=== PATIENT | female | born 1940 | race Native Hawaiian/Other Pacific Islander ===

== ENCOUNTER 2017-09-20 01:12 | Emergency (ER) | payer OTHER ==
[~2017-09-20] VITALS: Ht 152.4 cm; Wt 81.6 kg
[~2017-09-20 01:12] MED LIST: ASPI-COR81 M1 PO; ASPI-COR81 M2 PO; COUMADIN4 MG PO; GABAPENTIN300 M1 PO; GLIPIZIDE10 M PO; GLU10XL PO; HCTZ PO; KLORCON PO; L20 PO; LYRICA75 M1 PO; LYRICA75 MG PO; METFORMIN HCL1000 MG PO; METFORMIN1000 MG PO; NEU300 PO; SOTALOL HCL80 MG PO; VICODIN1 TA1 PO; VICODIN1 TAB PO; ZES10 PO; ZOLPIDEM TART PO; ZOLPIDEM TART5 MG PO
[2017-09-20 01:18] VITALS: Ht 152.4 cm; Wt 81.6 kg
[2017-09-20 02:34] LABS: BASOPHIL % 1.6 % (0-2)
[2017-09-20 02:36] LABS: PLATELET COUNT 480 x10^3mcL (130-400); RED CELL DISTRIBUTION WIDTH 17.1 % (11.5-14.5)
[2017-09-20 02:43] LABS: CALCIUM 8.7 mg/dL (8.5-10.1); CARBON DIOXIDE 27.8 mmol/L (21-32); CHLORIDE SERUM 106 mmol/L (98-107); CREATININE SERUM 1.2 mg/dL (0.6-1.0); GLUCOSE SERUM 140 mg/dL (74-106); POTASSIUM SERUM 4.5 mmol/L (3.5-5.1); SODIUM SERUM 143 mmol/L (136-145)
[2017-09-20 02:48] LABS: ALKALINE PHOSPHATASE 166 U/L (46-116); ALT/SGPT 17 U/L (14-59); AST/SGOT 17 U/L (15-37); TOTAL PROTEIN, SERUM 8.1 g/dL (6.4-8.2)
[2017-09-20 03:03] LABS: UA SPECIFIC GRAVITY <=1.005 (1.005-1.035); microscopic required? YES; urine erythrocyte NEGATIVE (NEGATIVE)
[2017-09-20 04:01] VITALS: BP 151/82
== END 2017-09-20 04:01 | disposition home or self-care (01) ==
LOC: ED 01:12
PROVIDERS: Emergency Medicine
DX: N39.0 Urinary tract infection, site not specified (principal); R07.89 Other chest pain; R06.02 Shortness of breath; I10 Essential (primary) hypertension; E11.9 Type 2 diabetes mellitus without complications
CPT/HCPCS: 36415; 82962

== ENCOUNTER 2017-10-27 17:43 | Emergency (ER) | payer OTHER ==
[~2017-10-27] VITALS: Ht 152.4 cm; Wt 83.9 kg
[2017-10-27 17:55] VITALS: Ht 152.4 cm; Wt 83.9 kg
[2017-10-27 18:43] LABS: UA SPECIFIC GRAVITY >=1.030 (1.005-1.035); microscopic required? YES; urine erythrocyte 1+ (NEGATIVE)
[2017-10-27 18:55] LABS: PLATELET COUNT 378 x10^3mcL (130-400)
[2017-10-27 18:56] LABS: BASOPHIL % 2.1 % (0-2); RED CELL DISTRIBUTION WIDTH 18.8 % (11.5-14.5)
[2017-10-27 19:04] LABS: CALCIUM 8.7 mg/dL (8.5-10.1); CARBON DIOXIDE 25.7 mmol/L (21-32); CHLORIDE SERUM 109 mmol/L (98-107); GLUCOSE SERUM 117 mg/dL (74-106); POTASSIUM SERUM 3.6 mmol/L (3.5-5.1); SODIUM SERUM 145 mmol/L (136-145)
[2017-10-27 19:11] LABS: ALBUMIN 3.9 g/dL (3.4-5.0); ALKALINE PHOSPHATASE 129 U/L (46-116); ALT/SGPT 17 U/L (14-59); AST/SGOT 20 U/L (15-37); BILIRUBIN TOTAL 0.49 mg/dL (0.20-1.00)
[2017-10-27 23:33] VITALS: BP 176/64
== END 2017-10-27 23:33 | disposition home or self-care (01) ==
LOC: ED 17:43
PROVIDERS: Emergency Medicine
DX: D50.9 Iron deficiency anemia, unspecified (principal); R33.9 Retention of urine, unspecified; I10 Essential (primary) hypertension; E11.9 Type 2 diabetes mellitus without complications
CPT/HCPCS: 83880; 85378; J1200; J2405; J3010; J3490; J7030; Q9967

== ENCOUNTER 2018-08-15 06:46 | Inpatient (IN) | payer OTHER ==
[~2018-08-15] VITALS: Ht 152.4 cm; Wt 77.1 kg
[2018-08-15 06:50] VITALS: Ht 152.4 cm; Wt 77.1 kg
--- NOTE | 2018-08-15 07:09 | NUR ---
PT PRESENTED TO ED FOR BILATERAL CHEST PAIN X 3 DAYS THAT WORSENED TODAY AND DIARRHEA X 2 DAYS. PT STATES CHEST PAIN IS NONPROVOKED AND NONRADIATING. PT STATES RECENT INCREASE IN URINARY FREQUENCY. PT IS NAD. BREATHING EVEN AND UNLABORED. PT A&OX4, SPEAKING FULL CLEAR SENTENCES. CM AND [address] MSE IN PROGRESS BY DR PUENTE. FAMILY AT BEDSIDE. WILL CONTINUE TO MONITOR.
--- NOTE | 2018-08-15 07:14 | NUR ---
REPORT GIVEN TO EUGENE TOMPKINS. EUGENE TOMPKINS TO FURTHER CARE OF PATIENT.
--- NOTE | 2018-08-15 07:15 | NUR ---
PT RECIEVED FROM ER. ADMISSION HISTORY AND ASSESSMENT WAS COLLECTED AND WILL BE DOCUMENTED. FAMILY AT BEDSIDE. SAFETY PRECAUTIONS IN PLACE AT THIS TIME. PT DENIES PAIN AT THIS TIME. NO RESPIRATORY DISTRESS NOTED. TELE MONITOR #30 CONNECTED TO PT. CALL LIGHT WITHIN REACH. WILL MONITOR.
--- NOTE | 2018-08-15 07:15 | NUR ---
RECEIVED REPORT FROM LEDA BENITEZ TO ASSUME CARE FOR THIS PT.
--- NOTE | 2018-08-15 07:32 | NUR ---
AT 0728 WHEN THE FIRST NITROSTAT WAS ADMINISTERED THE PTS RIGHT SIDED CHEST PAIN WAS REPORTED 8/10 ON THE VERBAL NUMERIC PAIN SCALE.
--- NOTE | 2018-08-15 07:52 | NUR ---
PT STRAIGHT CATHED WITH LEDA GUTIÉRREZ TO ASSIST. PT TOLERATED WELL. URINE COLLECTED AND SENT TO THE LAB.
[2018-08-15 08:21] LABS: CHLORIDE SERUM 105 mmol/L (98-107); CREATININE SERUM 0.9 mg/dL (0.6-1.0); POTASSIUM SERUM 3.3 mmol/L (3.5-5.1); SODIUM SERUM 142 mmol/L (136-145)
[2018-08-15 08:22] LABS: UA SPECIFIC GRAVITY 1.025 (1.005-1.035); microscopic required? YES
[2018-08-15 08:23] LABS: urine erythrocyte TRACE (NEGATIVE)
[2018-08-15 08:29] LABS: ALBUMIN 4.1 g/dL (3.4-5.0); ALKALINE PHOSPHATASE 72 U/L (46-116); ALT/SGPT 17 U/L (14-59); AMYLASE 88 U/L (25-115); AST/SGOT 14 U/L (15-37); BILIRUBIN TOTAL 0.5 mg/dL (0.20-1.00); CALCIUM 8.7 mg/dL (8.5-10.1); CARBON DIOXIDE 21.3 mmol/L (21-32); GLUCOSE SERUM 104 mg/dL (74-106); HDL CHOLESTEROL 40 mg/dL (40-60); LIPASE 224 IU/L (73-393); T4(THYROXINE) 10.3 ug/dL (4.7-13.3)
[2018-08-15 08:33] LABS: CHOLESTEROL 116 mg/dL (<200)
[2018-08-15 09:05] LABS: BASOPHIL % 0.8 % (0-2); PLATELET COUNT 410 x10^3mcL (130-400); RED CELL DISTRIBUTION WIDTH 20.1 % (11.5-14.5)
--- NOTE | 2018-08-15 10:18 | NUR ---
PT REMAINS RESTING IN A POSITION OF COMFORT IN LOW POSITIONED BED WITH SIDE RAILS UP X 2 AND CALL LIGHT WITH REACH.
--- NOTE | 2018-08-15 11:42 | NUR ---
PT C/O PAIN LOACTED IN BILATERAL LOWER EXTREMITIES. PT REPORTS "IT'S CONSTANT RADIATING UP AND DOWN, AND SHARP." PT RATES PAIN AT 9/10. DR. PUENTE MADE AWARE. SEE EMAR FOR NEW ORDERS.
--- NOTE | 2018-08-15 12:02 | NUR ---
PT RESTING IN SEMI-FOWLERS POSITION. RESPS E/U, SKIN IS PINK, WARM AND DRY. CALL LIGHT WITHIN REACH.
[2018-08-15] MEDS ORDERED: METFORMIN HCL1000 MG PO (12:42)
[2018-08-15] MEDS ORDERED: SOTALOL HCL80 MG PO (12:42)
[2018-08-15] MEDS ORDERED: GLUCOTROL10 MG PO (12:42)
[2018-08-15] MEDS ORDERED: LYRICA200 MG (12:42)
[2018-08-15] MEDS ORDERED: LORAZEPAM0.5 MG (12:43)
[2018-08-15] MEDS ORDERED: POTASSIUM CHLO10 MEQ (12:43)
[2018-08-15] MEDS ORDERED: NORCO1 TA2 (12:44)
[2018-08-15] MEDS ORDERED: ASPIRIN FOR CHI81 M1 PO (12:45)
--- NOTE | 2018-08-15 12:51 | NUR ---
REPORT GIVEN TO MONSERRAT/FERCHO RN'S FROM TELE FLOOR TO ASSUME CARE.
[2018-08-15 13:20] VITALS: BP 152/68
[2018-08-15 13:45] LABS: AMPHETAMINE QUAL UR NONE DETECTED (See below)
[2018-08-15 16:13] VITALS: BP 179/79
--- NOTE | 2018-08-15 16:15 | NUR ---
PT C/O 01/28 BLE NEUROPATHY PAIN. PAGED DR MULLINS FOR PAIN MEDICATION ORDER. NO PAIN MEDICATION ORDER AVAILABLE AT THIS TIME.
--- NOTE | 2018-08-15 17:00 | NUR ---
INFORMED ABOUT PT HAS DIFFICULTY VOIDING. HE SAID STRAIGHT CATH PT IF SHE HAS PROBLEM VOIDING.
--- NOTE | 2018-08-15 17:06 | NUR ---
RECEIVED CALL BACK FROM DR. MULLINS MADE AWARE OF C/O FOR PAIN, NAUSEA AND ELEVATED B/P 179/79. OBTAINED T.O FOR MEDICATIONS. ORDERS CARRIED OUT. ATTENDING NURSE MADE AWARE.
--- NOTE | 2018-08-15 17:10 | NUR ---
INFORMED PT ABOUT STRAIGHT CATH. PT SAID SHE IS VOIDING IN THE PAD NOW. PT REQUESTED PRIVACY AND PROVIDED.
--- NOTE | 2018-08-15 17:48 | NUR ---
RECIEVED ORDER FROM DR MULLINS FOR PAIN AND NAUSEA MEDICATION, NORCO PO FOR PAIN AND ZOFRAN IV FOR MILD NAUSEA (SEE eMAR). PT STATES PAIN IS NOW AT A 5/10 AFTER NON PHARMALOGICAL INTERVENTIONS DONE. PT STILL REQUESTING NORCO FOR 5/10 BLE PAIN. NORCO GIVEN FOR PAIN AND ZOFRAN GIVEN FOR C/O MILD NAUSEA. WILL REASSESS PT.
--- NOTE | 2018-08-15 18:15 | NUR ---
PT VOIDED IN THE ABSORB PAD, LARGE AMOUNT URINE ACCORDING TO MELT ROOM OPERATOR.
--- NOTE | 2018-08-15 19:10 | NUR ---
PT RESTING COMFORTABLY IN BED WITH NO C/O PAIN OR RESPIRATORY DISTRESS. TOLERATED ALL CARES WELL. V/S WNL. SAFETY PRECAUTIONS IN PLACE. CALLL LIGHT WITHIN REACH. REPORT GIVEN TO COMMERCIAL LINES ACCOUNT EXECUTIVE.
--- NOTE | 2018-08-15 19:30 | NUR ---
PT RESTING IN BED COMFORTABLY WITH NO ACUTE DISTRESS NOTED AT THIS TIME, PT HAS NO COMPLAINTS OF CHEST PAIN OR DIFFICULTY BREATHING AT THIS TIME, PT IS A/OX 4, PERIPHERAL PULSES PALPABL, NO EDEMA PRESENT, LUNG SOUNDS CTA THROUGHOUT, BOWEL SOUNDS ACTIVEX 4, PT HAS EPISODES OF URINARY INCONTINENCE, PT C/O GENERALIZED WEAKNESS, AND USE OF WHEELCHAIR AT HOME, PT SKIN DRY INTACT, SAFETY PRECAUTIONS IN PLACE, WILL CONTINUE TO MONITOR
--- NOTE | 2018-08-15 21:30 | NUR ---
PT RESTING COMFORTABLY IN BED WATCHING TV, REPORTS NO CHEST PAIN OR SOB AT THIS TIME, ALL NEEDS MET AT THIS TIME, SAFETY PRECAUTIONS IN PLACE WILL CONTINUE TO MONITOR
[2018-08-15 21:44] VITALS: BP 149/59
--- NOTE | 2018-08-15 23:59 | NUR ---
PT C/O BLE SHOOTING PAIN 11/28. MEDICATED WITH NORCO.
--- NOTE | 2018-08-16 00:30 | NUR ---
PT SLEEPING COMFORTABLY IN BED WITH NO ACUTE SIGNS OF DISTRESS, RESPIRATIONS EVEN AND UNLABORED, SAFETY PRECAUTIONS IN PLACE WILL CONTINUE TO MONITOR.
--- NOTE | 2018-08-16 02:50 | NUR ---
PT ASSISTED ONTO THE BEDPAN AND HAD A VOID FREE OF BURNING ITCHING OR PAIN, PT DENIES CHEST PAIN AT THIS TIME, PT DENIES RESPIRATORY DISTRESS AT THIS TIME, SAFETY PRECAUTIONS IN PLACE WILL CONTINUE TO MONITOR
--- NOTE | 2018-08-16 05:29 | NUR ---
PT RESTED COMFORTABLY THROUGH THE NIGHT WITH ONE EPISODE OF LEG PAIN THAT WAS TREATED (SEE NOTES), PT DENIED HAVING CHEST PAIN THROUGH THE NIGHT, HAD NO EPISDOES OF SOB THROUGH THE NIGHT, THE PATIENT WAS ABLE TO VOID FREELY WITH NO COMPLAINT OF BURNING OR PAIN, SAFETY PRECAUTIONS WERE MAINTAINED THROUGH THE NIGHT, WILL ENDORSE TO ONCOMING RN.
[2018-08-16 05:57] VITALS: BP 141/57
[2018-08-16 07:13] LABS: ALBUMIN 3.7 g/dL (3.4-5.0); ALKALINE PHOSPHATASE 68 U/L (46-116); ALT/SGPT 16 U/L (14-59); AST/SGOT 13 U/L (15-37); BILIRUBIN TOTAL 0.5 mg/dL (0.20-1.00); CALCIUM 8.5 mg/dL (8.5-10.1); CARBON DIOXIDE 21.5 mmol/L (21-32); CHLORIDE SERUM 106 mmol/L (98-107); CREATININE SERUM 0.9 mg/dL (0.6-1.0); GLUCOSE SERUM 153 mg/dL (74-106); HDL CHOLESTEROL 38 mg/dL (40-60); POTASSIUM SERUM 4.2 mmol/L (3.5-5.1); SODIUM SERUM 141 mmol/L (136-145); TOTAL PROTEIN, SERUM 7.4 g/dL (6.4-8.2); TRIGLYCERIDES 72 mg/dL (<150)
[2018-08-16 07:16] LABS: CHOLESTEROL 112 mg/dL (<200); CHOLESTEROL/HDL RATIO 2.9
--- NOTE | 2018-08-16 07:20 | NUR ---
RECEIVED PT FROM UPFITTER, PT RESTING IN BED. DENIES ANY PAIN. ASSESSED AND WILL DOCUMENT. STABLE. SAFTEY PRECAUTIONS ARE IN PLACE. WILL MONITOR.
[2018-08-16 10:14] VITALS: BP 148/40
--- NOTE | 2018-08-16 11:03 | NUR ---
PT C/O BLE PAIN,10/28 AT 1003 . SHE SAID IT'S HER NEUROPATHY PAIN. NORCO PO GIVEN PER ORDER AT 1003. REASSESSED NOW AND PT SAID SHE DOESNOT HAVE ANY PAIN AT 1103. WILL CONTINUE MONITOR.
--- NOTE | 2018-08-16 11:04 | NUR ---
PT IS STABLE. FAMILY AT BEDSIDE.
[2018-08-16 12:36] VITALS: BP 139/66
--- NOTE | 2018-08-16 13:00 | NUR ---
PT VOIDED 3 TIMES BUT EVERY TIME ONLY 50ML URINE OUT PUT. WILL CONTINUE MONITOR. PT DENIES ANY PAIN. STABLE.
--- NOTE | 2018-08-16 15:00 | NUR ---
PT VOIDED 4 TIMES, 50ML URINE OUT PUT EVERY TIME, TOTAL 200ML. PT C/O MILD TENDERNESS WITH PALPATION BUT ABD NOT DISTENTED. WILL INFORM AND WILL CONTINUE MONITOR.
--- NOTE | 2018-08-16 16:00 | NUR ---
CAME AND SPOKE WITH PT. INFORMED HIM ABOUT PT IS NOT VOIDING ENOUGH, 200ML FROM 0700 AM TO 1500, 50ML EVERY TIME WHEN PT VOID AND PT C/O MILD LOWER ABDOMINAL TENDERNESS WITH PALPATION. ABD NOT DISTENTED. HE RECCOMENDED BLADDER SCAN. BLADDER SCAN IS DONE, ONLY 47ML FOUND IN THE BLADDER BY SCAN. INFORMED HE SAID PT IS FINE AND STABLE TO GET DISCHARGE HOME. INFORMED PT AND SHE IS CALLING FOR FAMILY TO PICK HER UP. WILL DO DISCHARGE SOON.
--- NOTE | 2018-08-16 16:10 | NUR ---
AWARE ABOUT BP 148/41 AND HR 58 IN AM BUT NOW BP 139/66 AND HR 66. PT IS STABLE. SAID PT IS STABLE TO DISCHARGE.
[2018-08-16 16:18] VITALS: BP 139/66
--- NOTE | 2018-08-16 17:55 | NUR ---
PT C/O BLE NEUROPATHIC PAIN,07/29. MEDICATED PT WITH NORCO PO ORDERED. WILL REASSESS.
--- NOTE | 2018-08-16 18:50 | NUR ---
PT'S DAUGHTER CAME TO SHORE MAN PT. DISCHARGE INSTRUCTIONS GIVEN. PB SIGNED AND SENT WITH PT. IV REMOVED AND DRESSING APPLIED. TELE REMOVED AND RETURNED. PT DENIES ANY PAIN THIS TIME. SURGICAL TECHNOLOGY INSTRUCTOR WHEELED PT TO LOBBY ACCOMPANIED WITH FAMILY. PT DC HOME.
== END 2018-08-16 18:55 | disposition home or self-care (01) | DRG 313 ==
LOC: ED 06:46 → DU 12:30
PROVIDERS: Emergency Medicine; ADMIT Internal Medicine
DX: R07.89 Other chest pain (principal); E11.42 Type 2 diabetes mellitus with diabetic polyneuropathy; I49.1 Atrial premature depolarization; I10 Essential (primary) hypertension; Z68.26 Body mass index [BMI] 26.0-26.9, adult; Z96.642 Presence of left artificial hip joint; Z87.891 Personal history of nicotine dependence; Z79.84 Long term (current) use of oral hypoglycemic drugs
CPT/HCPCS: 82962; 83880; 85378; J1885; J2405; Q0092

== ENCOUNTER 2018-10-16 07:21 | Inpatient (IN) | payer OTHER ==
[~2018-10-16] VITALS: Ht 152.4 cm; Wt 77.8 kg
[~2018-10-16 07:21] MED LIST changes: +ASPIRIN FOR CHI81 M1 PO; +GLUCOTROL10 MG PO; +LORAZEPAM0.5 MG; +LYRICA200 MG; +NORCO1 TA2; +POTASSIUM CHLO10 MEQ
--- NOTE | 2018-10-16 07:45 | NUR ---
PT PRESENTS TO ED WITH C/O SOB SINCE 0300 THIS AM. PT AAOX4 NO RESP DISTRESS NOTED. PT GOWNED PLACED ON FULL CM AFIB. LUNGS CTA FAMILY AT BEDSIDE WILL MONITOR.
--- NOTE | 2018-10-16 07:53 | NUR ---
LAB AT BEDSIDE FOR BLOOD DRAW
--- NOTE | 2018-10-16 08:04 | NUR ---
PORTABLE CXR AT BEDSIDE
[2018-10-16 08:14] LABS: BASOPHIL % 1.1 % (0-2)
[2018-10-16 08:16] LABS: PLATELET COUNT 525 x10^3mcL (130-400); RED CELL DISTRIBUTION WIDTH 20.1 % (11.5-14.5); rbc morphology (normal/abnorm) ABNORMAL (NORMAL)
[2018-10-16 08:27] LABS: CALCIUM 9.5 mg/dL (8.5-10.1); CARBON DIOXIDE 17.6 mmol/L (21-32); CHLORIDE SERUM 107 mmol/L (98-107); GLUCOSE SERUM 231 mg/dL (74-106); POTASSIUM SERUM 4.5 mmol/L (3.5-5.1); SODIUM SERUM 140 mmol/L (136-145)
[2018-10-16 08:32] LABS: ALKALINE PHOSPHATASE 72 U/L (46-116); ALT/SGPT 20 U/L (14-59); AST/SGOT 13 U/L (15-37); BILIRUBIN TOTAL 0.65 mg/dL (0.20-1.00); TOTAL PROTEIN, SERUM 7.9 g/dL (6.4-8.2)
--- NOTE | 2018-10-16 08:50 | NUR ---
PT TO BEDSIDE COMMODE WILL PROVIDE URINE SAMPLE
--- NOTE | 2018-10-16 08:55 | NUR ---
URINE COLLECTED, DIPPED AND SENT TO LAB
--- NOTE | 2018-10-16 09:00 | NUR ---
PT WITH URGE TO HAVE BM ASSISTED TO BEDSIDE COMMODE
--- NOTE | 2018-10-16 09:16 | NUR ---
AFTER 15 MINUTES SITTING ON BEDSIDE COMMODE PT WAS UNABLE TO HAVE BM. ASSISTED BACK TO BED WITH NO INCIDENT PLACED ON FULL CM WILL MONITOR
--- NOTE | 2018-10-16 09:57 | NUR ---
PT WITH URGE TO VOID ASSISTED TO BEDSIDE COMMODE.
--- NOTE | 2018-10-16 10:12 | NUR ---
REPORT GIVEN TO CURLY TOMPKINS RESUMING CARE OF PT IN TELE FLOOR
--- NOTE | 2018-10-16 10:28 | NUR ---
PT TO TELE FLOOR [place]IA [place] ON PORTABLE CM IN NO DISTRESS FAMILY ACCOMPANIED PT. IGNACIO TOMPKINS AND [facility] EMT TRANSPORTED. CURLY TOMPKINS RESUMING CARE OF PT.
--- NOTE | 2018-10-16 10:36 | NUR ---
RECEIVED PT FROM ER, TRANSPORTED VIA [facility]. PT AOX4, RESP E/U ON RA. PT C/O SOB AND CHEST PAIN DURING DEEP BREATHING, RATED 7/10. PLACED IN BED W/ HOB ELEVATED, PUT ON NC AT 2 L/MIN. DURING ASSESSMENT, PT HAD 4 CONSECUTIVE BM EPISODES, SOFT AND FORMED. DENIES ABD PAIN OR N/V. PT AMBULATORY W/ ASSISTANCE, GAIT SLOW AND STEADY, WALKER PROVIDED. CONTINUED ASSESSMENT, VS FOLLOWS: T: 96.6 BP: 143/78, HR: 70, RR: 20, O2: 96. ON TELE 3 SHOWING A-FIB, DENIES CHEST PRESSURE OR PALPITATIONS. SALINE LOCK TO L HAND W/ NO ERYTHEMA OR EDEMA. BED IN LOWEST POSITION AND CALL LIGHT WITHIN REACH. WILL CONTINUE TO MONITOR.
[2018-10-16 10:48] LABS: UA SPECIFIC GRAVITY 1.025 (1.005-1.035); microscopic required? YES; urine erythrocyte NEGATIVE (NEGATIVE)
--- NOTE | 2018-10-16 11:30 | NUR ---
PT SLEEPING IN BED, AROUSABLE, RESP E/U ON RA. NO ACUTE DISTRESS NOTED. BED IN LOWEST POSITION AND CALL LIGHT WITHIN REACH. WILL CONTINUE TO MONITOR.
[2018-10-16 13:25] VITALS: BP 143/78
[2018-10-16 13:55] LABS: CHOLESTEROL/HDL RATIO 2.5
[2018-10-16 17:49] VITALS: BP 157/104
[2018-10-16 18:37] LABS: IRON 19 ug/dL (50-170); TOTAL IRON BINDING CAPACITY 457 ug/dL (250-450)
--- NOTE | 2018-10-16 18:37 | NUR ---
PT IN BED HAVING DINNER, AOX4, RESP E/U NC AT 2L/MIN. C/O BACK PAIN RATED 6/10. MEDICATED ORDERED. BED IN LOWEST POSITION AND CALL LIGHT WITHIN REACH. WILL ENDORSE TO ONCOMING NURSE.
--- NOTE | 2018-10-16 19:45 | NUR ---
RECEIVED PT FROM PREVIOUS SHIFT. PT A/OX4. DENIES PAIN. DENIES SOB ON RA. IV ACCIDENTALLY REMOVED BY PT. CALL LIGHT WITHIN REACH, BED IN LOW POSITION. WALKER AT BEDSIDE. WILL CONTINUE TO MONITOR.
--- NOTE | 2018-10-16 21:01 | NUR ---
NEW IV PLACED TO RFA. PATENT AND FLUSHING WELL. SALINE LOCKED. WILL CONTINUE TO MONITOR.
[2018-10-16 21:14] VITALS: BP 157/62
[2018-10-16 23:22] VITALS: Ht 152.4 cm; Wt 77.8 kg
[2018-10-17 04:37] VITALS: BP 146/81
[2018-10-17 06:27] LABS: BASOPHIL % 1.1 % (0-2)
[2018-10-17 06:30] LABS: CALCIUM 9.5 mg/dL (8.5-10.1); CARBON DIOXIDE 21.2 mmol/L (21-32); CHLORIDE SERUM 107 mmol/L (98-107); GLUCOSE SERUM 113 mg/dL (74-106); POTASSIUM SERUM 4.4 mmol/L (3.5-5.1); SODIUM SERUM 144 mmol/L (136-145)
--- NOTE | 2018-10-17 07:05 | NUR ---
RECIEVED PT FROM STONE RUBBER NURSE. PT USING RESTROOM AT THIS TIME. BROUGHT BACK TO BED FOR ASSESSMENT. PT AOX4, RESP E/U ON RA. PT C/O CHEST PAIN ON INSPIRATION RATED 6/10 AND SOB. ELEVATED HOB AND PLACED ON NC AT 2 L/MIN. WILL CARRY OUT MED ORDERS FOR PAIN. ON TELE 6 SHOWING A-FIB, HR: 94. SALIN LOCK TO R HAND W/ NO ERYTHEMA OR EDEMA. BED IN LOWEST POSITION AND CALL LIGHT WITHIN REACH. WILL CONTINUE TO MONITOR.
[2018-10-17 07:51] LABS: PLATELET COUNT 487 x10^3mcL (130-400); RED CELL DISTRIBUTION WIDTH 20.7 % (11.5-14.5)
[2018-10-17 08:35] VITALS: BP 143/71
--- NOTE | 2018-10-17 09:00 | NUR ---
PT C/O OF CHEST PAIN RATED 6/10, PAIN TRIGGERED W/ DEEP BREATHING. MEDICATED ORDERED. HOB ELEVATED AND NC AT [address] WILL CONTINUE TO MONITOR.
--- NOTE | 2018-10-17 12:25 | NUR ---
PT RESTING IN BED, AOX4, RESP E/U ON NC 2 LPM. NO ACUTE DISTRESS NOTED. DENIES PAIN AT THIS TIME. BED IN LOWEST POSITION AND CALL LIGHT WITHIN REACH. WILL CONTINUE TO MONITOR.
[2018-10-17 12:46] VITALS: BP 138/71
[2018-10-17 16:33] VITALS: BP 144/84
--- NOTE | 2018-10-17 20:50 | NUR ---
RECEIVED PT IN BED AAOX4 NO ACUTE DISTRESS NOTED , LUNG SOUNDS DIMINISHES NO RESP NO DISTRESS NOTED , ABD SOFT BS ACTIVE X4, PT C/O INDIGESTION LAST BM WAS ON THE 28 WILL MEDICATE PT ORDERED . PT'S ON TELE NUMBER 3 THAT SHOWS AFIB HR 88. HL INTACT FLUSHING WELL . CALL LIGHT WITHIN PT'S REACH , WILL CON'T TO MONITOR AND ASSIST PT WITH CARE .
[2018-10-17 22:08] VITALS: BP 146/95
--- NOTE | 2018-10-18 04:52 | NUR ---
PT'S IN BED WITH EYES CLOSED . BED ALARM ON FOR SAFETY PT WAS WONDERING ON THE GLEZ ERLIER VERY DISORIENTED, ORIENTED PT TO THE ROOM . CALL JEFFRIES WITHIN PT'S REACH . HL INTACT .
--- NOTE | 2018-10-18 06:18 | NUR ---
POST NORCO PT DENY PAIN , IN BED WATCHING TV , HL INTACT FLUSHING WELL . CALL LIGHT WITHIN PT'S REACH . WILL CON'T TO MONITOR PT .
[2018-10-18 06:40] VITALS: BP 150/84
[2018-10-18 06:50] LABS: BASOPHIL % 0.8 % (0-2)
--- NOTE | 2018-10-18 07:15 | NUR ---
RECEIVED PT FROM FOREIGN LANGUAGES PROFESSOR NURSE. PT IN BED SLEEPING, AROUSABLE, RESP E/U ON NC AT 2 LPM. NO ACUTE DISTRESS NOTED. ON TELE 3 SHWING A-FIB, HR: 76. SALINE LOCK TO L UPPER ARM W/ NO ERYTHEMA OR EDEMA. BED IN LOWEST POSITION AND CALL LIGHT WITHIN REACH. WILL CONTINUE TO MONITOR.
[2018-10-18 07:47] LABS: PLATELET COUNT 482 x10^3mcL (130-400); RED CELL DISTRIBUTION WIDTH 20.4 % (11.5-14.5)
[2018-10-18 08:55] VITALS: BP 140/59
[2018-10-18 12:15] VITALS: BP 135/69
--- NOTE | 2018-10-18 12:30 | NUR ---
PT RESTING IN BED, AOX4, RESP E/U ON NC AT 2 LPM. C/O MIDLINE CHEST PAIN, RATED 9/10, DENIES PALPITATIONS. MEDCIATED ORDERED. ECCHYMOSIS AND EDEMA NOTED TO RAC AT VENIPUNCTURE SITE. ELEVATED EXTREMITY AND APPLIED ICE PACK. BED IN LOWEST POSITION AND CALL LIGHT WITHIN REACH. WILL CONTINUE TO MONITOR.
[2018-10-18 17:00] VITALS: BP 130/46
--- NOTE | 2018-10-18 18:02 | NUR ---
PT SITTING AT EDGE OF BED HAVING DINNER, AOX4, RESP E/U ON NC AT 2 LPM. DENIES CHEST PAIN AT THIS TIME. NO ACUTE DISTRESS NOTED. IV TO TREVA W/ NO SIGNS OF INFILTRATION, RECEIVING LEVAQUIN AT THIS TIME INFUSING WELL. BED IN LOWEST POSITION AND CALL LIGHT WITHIN REACH. FAMILY AT BEDSIDE ASSISTING W/ DINNER. WILL CONTINUE TO MONITOR.
[2018-10-18 19:50] VITALS: BP 112/52
--- NOTE | 2018-10-18 21:05 | NUR ---
OBTAINED CONSENT FOR EGD AND COLONOSCOPY , PREP FOR COLONOSCOPY STARTED .
--- NOTE | 2018-10-18 22:16 | NUR ---
PT BLOOD SUGAR IS 54, REPEATED IT IS 52. D5O IVP GIVEN PER HOSPITAL PROTOCOL. DR URENA NOTIFIED. ORDERS RECEIVED FOR MAINTENANCE FLUID. PRIMARY NURSE NOTIFIED
--- NOTE | 2018-10-18 22:29 | NUR ---
RECHECKED BLOOD SUGAR IT IS 192
--- NOTE | 2018-10-19 00:43 | NUR ---
2ND PREP STARTED PT TOLERATED WELL . MULTIPLE LIQDS STOOL NOTED .
--- NOTE | 2018-10-19 01:53 | NUR ---
I HAVE REVIEWED THE DATA COLLECTION BY ROLL INSPECTOR (NAME):CHARLA BABIN ENTERED ON (DATE/TIME): I CONCUR WITH THE DATA AND ANY EXCEPTIONS OR COMMENTS ARE LISTED BELOW:
[2018-10-19 06:11] VITALS: BP 168/86
--- NOTE | 2018-10-19 06:27 | NUR ---
LAST BS GREENISH/CLEAR , HELP AM CARDIZEM HR 59, TELE SB , PIV INTACT INFUSING WELL.
[2018-10-19 06:52] LABS: BASOPHIL % 0.6 % (0-2)
--- NOTE | 2018-10-19 07:04 | NUR ---
SBA REPORT GIVEN TO [facility].
[2018-10-19 07:38] LABS: PLATELET COUNT 484 x10^3mcL (130-400); RED CELL DISTRIBUTION WIDTH 21.1 % (11.5-14.5)
[2018-10-19 07:53] VITALS: BP 158/68
--- NOTE | 2018-10-19 09:33 | NUR ---
AT 0730 - RECEIVED PATIENT FROM NIGHT NURSE. AWAKE, ALERT AND ORIENTED. FAMILY AT BEDSIDE. MONTIOR SHOWING A-FIB ; RATE 60. PATIENT IS NPO FOR EGD AND COLONOSCOPY THIS AM. IV INFUSING D5 1/2 NS AT 100 ML/HR. AT 0815 - PATIENT TAKEN TO GI LAB.
[2018-10-19 12:53] VITALS: BP 116/58
--- NOTE | 2018-10-19 13:01 | NUR ---
AT 1100 - PATIENT BACK IN ROOM FOLLOWING EGD AND COLONOSOCPY UNDER MODERATE SEDATION. AWAKE, ALERT AND ORIENTED. MONITOR SHOWING A-FIB; RATE 60'S. MADE COMFORTBLE. AT BEDSIDE. AT 1245 - HAS BEEN OUT OF BED FOR BEDSIDE COMODE USE. PHYSICAL THERAPY IN ROOM. AT 1300 - SEEN BY DR URENA. PLAN TO DC HOME TOMORROW. SITTING ON SIDE OF BED FOR LUNCH.
[2018-10-19 14:06] LABS: rbc morphology (normal/abnorm) ABNORMAL (NORMAL)
[2018-10-19 16:20] VITALS: BP 145/61
--- NOTE | 2018-10-19 16:25 | NUR ---
AT 1430 - IV FERRLICIT IN PROGRESS PER EMAR. PATIENT RESTING QUIETLY. C/O ARTHRITIC PAIN ON MOVEMENT. AT 1610 - AMBULATED TO ATHROOM AND BACK TO BED. PAIN UNDER CONTROL WITH NORCO PER EMAR. IV NOW SALINE LOCKED PER ORDERS. AT 1625 - CALL PLACED FOR DR GONZALEZ TO CLARIFY XERALTO CONTINUATION. DR BRUCE WOULD LIKE XERALTO CONTINUED BUT IF DR GONZALEZ PREFERS TO HAVE IT STOPPED FOR A TIME IT COULD BE STOPPED FOR 1-2 WEEKS.
[2018-10-19 16:28] VITALS: BP 148/96
--- NOTE | 2018-10-19 16:47 | NUR ---
RECEIVED CALL FROM DR GONZALEZ. RECEIVED ORDER TO HOLD XERALTO FOR 2 WEEKS. SPOKE WITH PHARMACIST WHO WAS ABLE TO ADJUST ORDER/ PLACE ON HOLD.
--- NOTE | 2018-10-19 17:54 | NUR ---
PATIENT AMBULATING TO BATHROOM FOR TOILET NEEDS USING WALKER. VSS. IV SALINE LOCKED. MONITOR SHOWING A-FIB; RATE 90'S WITH INCREASED RATE UP TO 160 DURING ACTIVITY. DENEIS ANY CHEST PAIN. BP STABLE. RESUMED CARDIAC DIET. AT BEDSIDE. WILL ENDORSE CARE TO NIGHT NURSE.
--- NOTE | 2018-10-19 17:58 | NUR ---
PATIENT AMBULATING TO BATHROOM FOR TOILET NEEDS USING WALKER. MONITOR SHOWING A-FIB; RATE 70. NO C/O CHEST PAIN. IV SALINE LOCKED. TOLERATING DIET PO. WILL ENDORSE CARE TO NIGHT NURSE.
--- NOTE | 2018-10-19 19:30 | NUR ---
PT IS A/O x4. ON TELE #3, A-FIB. DENIES ANY CHEST PAIN OR PRESSURE. PUKLSES ARE PRESENT. EDEMA NOTED ON BLE. LUNGS CLEAR IN ALL FEILDS. ON RA, DENIES ANY SOB. EQUAL CHEST RISE AND FALL. NO SIGN OF RESP DISTRESS. BOWEL SOUNDS PRESENT. x4. DENIES ANY ABD PAIN. ABD IS ROUND AND SOFT. PT C/O WATERY STOOLS. RECTAL AREA IS WNL, POST COLONOSCOPY TODAY. FRONT WHEEL WALKER AT BEDSIDE. DENIES ANY PAIN AT THIS TIME. IV ON TREVA INTACT AND PATENT. NO SIGN OF INFILTRATION OR IRRITAION NOTED. BED IS AT LOWEST SETTING. CALL LIGHT WITHIN REACH. WILL CONTINUE TO MONTIOR.
--- NOTE | 2018-10-19 20:23 | NUR ---
PT BLOOD SUGAR WAS LOW AT 48, REPEAT WAS 49. D50 IVP WAS BEING PUSHED THROUGH IV ON TREVA AND IT STARTED TO LEAK AND PT COMPLAIN OF DISCOMFORT. IV IS BEING ATTEMPTED BY RESOURCE NURSE, SABIHA AND GEORGETTE ORANGE JUICE WITH 5 SUGAR PACKETS WAS GIVEN ORALLY IN THE MEAN TIME. ONCE IV IS ESTABLISHED WILL GIVE IVP D5. WILL CONTINUE TO MONTIOR.
--- NOTE | 2018-10-19 20:44 | NUR ---
22G IV ON LFA WAS ACHIEVED. D50 WAS PUSHED. SON AT BEDSIDE. WILL RECHECK SUGAR.
[2018-10-19 20:53] VITALS: BP 117/72
--- NOTE | 2018-10-19 22:00 | NUR ---
PRECHECKED BG AND IT HAS INPROVED TO 135. ENCOURAGE PT TO EAT A SNACK. DAUGHTER IS AT BEDSIDE. WILL CONTINUE TO MONTIOR.
--- NOTE | 2018-10-20 01:37 | NUR ---
SITZ BATH PREFORMED IN THE BATHROOM [facility]. WATER WAS CHECKED WITH THERMAMETER AND IT WAS 103-105 DEGREE F, WHICH IT WAS WITHIN TEMP (100.0-105.0 DEGREES F). PER PT, SHE ALSO STATES THE TEMP WAS COMFORTABLE AND SOOTHING. RECTAL AREA WAS CHECKED AFTERWARDS AND WAS WNL. DAUGHTER WAS PRESENT. PT TOLERATED WELL. PT WAS ASSISTED BACK TO BED AND MADE COMFORTABLE. BED IS AT LOWEST SETTING. CALL LIGHT WITHIN REACH. [facility]
[2018-10-20 06:03] VITALS: BP 135/62
[2018-10-20 06:06] LABS: BASOPHIL % 0.6 % (0-2)
[2018-10-20 06:28] LABS: CHLORIDE SERUM 111 mmol/L (98-107); CREATININE SERUM 0.7 mg/dL (0.6-1.0); GLUCOSE SERUM 72 mg/dL (74-106); POTASSIUM SERUM 3.2 mmol/L (3.5-5.1); SODIUM SERUM 148 mmol/L (136-145)
[2018-10-20 06:42] LABS: PLATELET COUNT 431 x10^3mcL (130-400); RED CELL DISTRIBUTION WIDTH 21.2 % (11.5-14.5)
--- NOTE | 2018-10-20 06:57 | NUR ---
PT IS RESTING IN BED. MD URENA WAS MADE AWARE OF GLUCOTROL BEING HELD THIS MORNING AND BG BEING 48/49 LAST NIGHT AND HAVING TO PUSH D50. ALSO NOTED TO MD ABOUT SEEING A TREND OF BG BEING LOW IN THE 40S WHEN METFORMIN AND GLUCOTROL WAS GIVEN AT THE 1700 DOSE. MD TO FOLLOW UP THIS AM. DAUGHTER AT BEDSIDE. BED IS AT LOWEST SETTING. CALL LIGHT WITHIN REACH. WILL ENDORSE TO AM NURSE.
--- NOTE | 2018-10-20 07:30 | NUR ---
AAO TIMES 4. TELE # 3 A FIB 87. ON XARELTO PO. LUNGS CTA. NO SOB. O2 SAT ON RA 98%. BS'S ACTIVE TIMES 4. BARBA, BRP ASSIST WITH WALKER. PERIPHERAL PULSES PALPABLE. TRACE EDEMA BLE. IV SITE CDI. COOPERATIVE AND PLEASANT. PRESENT, SUPPORTIVE.
[2018-10-20 08:57] VITALS: BP 142/60
[2018-10-20 13:04] VITALS: BP 144/68
[2018-10-20] MEDS ORDERED: CARDIZEM PO (13:48)
[2018-10-20] MEDS ORDERED: AMOXICILLIN500 M1 PO (13:49)
[2018-10-20] MEDS ORDERED: PRILOSEC OTC20 M1 PO (13:49)
[2018-10-20] MEDS ORDERED: MIRALAX17 GM/Dose PO (13:51)
[2018-10-20] MEDS ORDERED: SOTALOL HCL80 MG PO (13:52)
[2018-10-20] MEDS ORDERED: NATURAL IRON65 MG PO (13:52)
[2018-10-20] MEDS ORDERED: XARELTO10 M1 PO (13:54)
[2018-10-20] MEDS ORDERED: BIAL PO (13:55)
[2018-10-20] MEDS ORDERED: METAMUCIL PACK3.4 GM PO (13:55)
--- NOTE | 2018-10-20 14:44 | NUR ---
GAVE DISHCARGE INSTRUCTIONS AND PRESCRIPTION. DC'D SL ANGIO INTACT. PRESENT, THEY ARE WAITING FOR THEIR DAUGHTER TO COME GET THEM. SHE STATED THAT SHE UNDERSTOOD TO ALL THE INSTRUCTIONS. SHE FULLY UNDERSTOOD THAT SHE IS TO NOT TAKE XARELTO UNTIL 11/02/18, WRITTEN ON HER DISCHARGE INSTRUCTIONS. SHE ALSO KNOWS SHE WILL RESUME THE METFORMIN PREVIOUSLY TAKING, BUT NOTHING ELSE SHE WAS PREVIOUSLY TAKING AT HOME. SHE KNOWS SHE IS NOT TO TAKE GLUCATROL ANYMORE. I CALLED DR URENA AT 1300 AND HE TOLD ME THAT SHE IS TO STOP ALL HOME MEDICATIONS EXCEPT METFORMIN. I CALLLED DR GONZALEZ AT 1400, AND HE SAID SHE IS TO HOLD THE XARELTO FOR 2 WEEKS.
== END 2018-10-20 15:02 | disposition home or self-care (01) | DRG 393 ==
LOC: ED 07:21 → DU 09:17
PROVIDERS: Emergency Medicine; Internal Medicine Cardiovascular Disease; Internal Medicine Gastroenterology; ADMIT Internal Medicine
PROC: 0DB78ZX Excision of Stomach, Pylorus, Via Natural or Artificial Opening Endoscopic, Diagnostic (ICD-10-PCS; principal; 2018-10-19 10:00)
PROC: 0W3P8ZZ Control Bleeding in Gastrointestinal Tract, Via Natural or Artificial Opening Endoscopic (ICD-10-PCS; 2018-10-19 10:00)
DX: K64.8 Other hemorrhoids (principal); K29.61 Other gastritis with bleeding; K26.4 Chronic or unspecified duodenal ulcer with hemorrhage; D50.0 Iron deficiency anemia secondary to blood loss (chronic); I48.91 Unspecified atrial fibrillation; B96.81 Helicobacter pylori [H. pylori] as the cause of diseases classified elsewhere; K57.30 Diverticulosis of large intestine without perforation or abscess without bleeding; E87.70 Fluid overload, unspecified; I11.0 Hypertensive heart disease with heart failure; I50.9 Heart failure, unspecified; I25.10 Atherosclerotic heart disease of native coronary artery without angina pectoris; E11.42 Type 2 diabetes mellitus with diabetic polyneuropathy; E66.9 Obesity, unspecified; Z68.33 Body mass index [BMI] 33.0-33.9, adult; Z96.642 Presence of left artificial hip joint; Z99.3 Dependence on wheelchair; Z79.84 Long term (current) use of oral hypoglycemic drugs; Z79.4 Long term (current) use of insulin; Z79.82 Long term (current) use of aspirin; Z79.891 Long term (current) use of opiate analgesic
CPT/HCPCS: 43235; 45378; 46221; 82962; 83880; 97116-GP; 97530-GP; G0378; J1200; J1610; J1940; J1956; J2250; J2310; J2916; J3010; J3490; Q0092